=== PATIENT | male | born 1990 | race African-American/Black ===

== ENCOUNTER → 2016-05-20 15:50 | Emergency (ER) | payer OTHER ==
[2016-05-20 14:13] LABS: INFLUENZA A NEG (NEG); INFLUENZA B NEG (NEG)
[~2016-05-20 15:50] MED LIST: ABILIFY PO; AMOXIL500 M1 PO; BACTRIM DS TABL1 TA1 PO; CLEOCIN HCL300 M1 PO; DELSYM30 MG/5 M1 PO; FLEXERIL10 MG PO; IBUPROFEN PO; IBUPROFEN800 MG PO; KEFLEX500 M1 PO; KETOPROFEN PO; LORTAB 5/500 TA1 TA1 PO; MOTRIN400 MG PO; MOTRIN600 M1 PO; NO MEDICATIONS; TRAMADOL HCL50 M1 PO; ULTRAM PO; VICODIN 5/500 T1 TAB PO
== END | disposition left against medical advice (07) ==
LOC: CED 15:50
DX: Z53.21 Procedure and treatment not carried out due to patient leaving prior to being seen by health care provider (principal)
CPT/HCPCS: 87804

== ENCOUNTER 2016-08-11 15:14 | Emergency (ER) | payer OTHER ==
--- NOTE | ~2016-08-11 | CR114 ---
[facility] A Service of [facility] & [facility] RADIOLOGY TEXT RESULTS PATIENT: JERAMY BROCK LOCATION: CFTX : 90 UNIT #: [id number] AGE: [address]: Radha Jackson APRN SEX: M ORDER DR: [id number] [facility] [address] [place] [address]. [place], [place] [address] [id number] E MR#: [id number] Acc #: [id number] NAME: JERAMY BROCK : 1990 SEX: M STUDY DATE/TIME: 08/11/2016 19:38 UNIT: [facility] ROOM: STUDY DESCRIPTION: CR Finger 2 View 5Th Lt Attending Physician: Radha Jackson A.P.R.N. Ordering Physician: Ed Sotero Calix M.D. Primary Care Physician: Primary Care Physician No MEDICAL IMAGING REPORT This report is preliminary unless electronic signature is present EXAM Left fifth finger. HISTORY Jammed playing basketball 30 minutes ago, post reduction films. COMPARISON 08/11/2016 at 1752 hours FINDINGS Examination demonstrates complete reduction of the patient's PIP dislocation of the fifth digit. No residual fracture or deformity seen. Mild soft tissue swelling. Dictated by... Isaiah Upton M.D. THIS IS AN ELECTRONICALLY VERIFIED REPORT Isaiah Upton M.D. at 08/11/2016 9:15 PM BENNY/saurav TD: 08/11/2016 20:41 JOB #: [id number] MEDICAL IMAGING REPORT Page 1 of 1 COPY
--- NOTE | ~2016-08-11 | CR141 ---
[facility] A Service of [facility] & [facility] RADIOLOGY TEXT RESULTS PATIENT: JERAMY BROCK LOCATION: CFTX : 90 UNIT #: [id number] AGE: [address]: Radha Jackson APRN SEX: M ORDER DR: [id number] [facility] [address] [place], [place] [address] [id number] E MR#: [id number] Acc #: [id number] NAME: JERAMY BROCK : 1990 SEX: M STUDY DATE/TIME: 08/11/2016 17:52 UNIT: [facility] ROOM: STUDY DESCRIPTION: CR Hand Min 3 Views Lt Attending Physician: Cheyenne Kulkarni A.P.R.N. Ordering Physician: Ed Sotero Calix M.D. Primary Care Physician: Primary Care Physician No MEDICAL IMAGING REPORT This report is preliminary unless electronic signature is present EXAM Left hand, 08/11/2016 HISTORY 26-year-old male with left hand pain status post injury, playing basketball today. COMPARISON None. FINDINGS Three views of the left hand demonstrate complete dorsal dislocation of the fifth proximal interphalangeal joint. No definite displaced fracture identified. IMPRESSION Complete dorsal dislocation of the fifth proximal interphalangeal joint. No definite displaced fracture identified. Dictated by... Kurt He M.D. THIS IS AN ELECTRONICALLY VERIFIED REPORT Kurt He M.D. at 08/12/2016 10:24 AM ALEX/saurav TD: 08/11/2016 18:56 JOB #: [id number] MEDICAL IMAGING REPORT Page 1 of 1 COPY
== END 2016-08-11 20:05 | disposition home or self-care (01) ==
LOC: CED 15:14 → CFTX 15:14
DX: S63.287A Dislocation of proximal interphalangeal joint of left little finger, initial encounter (principal); F17.200 Nicotine dependence, unspecified, uncomplicated; W21.05XA Struck by basketball, initial encounter; Y92.310 Basketball court as the place of occurrence of the external cause; F31.9 Bipolar disorder, unspecified
CPT/HCPCS: 26770; 29130; 73130; 73140; 99283